=== PATIENT | male | born 1935 | race Caucasian/White ===

== ENCOUNTER 2017-06-11 10:40 | Inpatient (IN) | payer OTHER ==
[~2017-06-11] VITALS: Ht 167.6 cm; Wt 57.0 kg
[~2017-06-11 10:40] MED LIST: ALBUPOW26; GLYB1POW
[2017-06-11 11:29] LABS: Hematocrit 40.7 % (41.0-53.0)
[2017-06-11 11:31] LABS: Basophils # (auto) 0.1 uL; Basophils % (auto) 0.7 % (0.0-2.0); Eosinophils # (auto) 0.2 uL; Eosinophils % (auto) 1.6 % (0.0-7.0); Hemoglobin 13.4 g/dL (13.5-17.5); Lymphocytes # (auto) 1.6 uL; Lymphocytes % (auto) 12.9 % (10.0-50.0); Mean Corpuscular Hemoglobin 35.2 pg (28.0-32.0); Mean Corpuscular Volume 106.4 fL (80.0-100.0); Mean Platelet Volume 7.4 fL (6.9-10.8); Monocytes # (auto) 1.8 uL; Monocytes % (auto) 14.2 % (0.0-12.0); Neutrophils # (auto) 8.8 uL; Neutrophils % (auto) 70.6 % (37.0-80.0); Nucleated Red Blood Cells % 0.1 %; Platelet Count (auto) 384 10^3/uL (140-450); White Blood Cell 12.5 10^3/uL (4.4-10.8)
[2017-06-11] MEDS ORDERED: ASPirin 81 mg TAB PO ONE (11:45)
[2017-06-11 11:50] LABS: Albumin 3.3 g/dL (3.4-5.0); BUN/Creatinine Ratio 60.3; Bilirubin, Total 0.3 mg/dL (0.2-1.0); Magnesium 2.7 mg/dL (1.6-2.6); Total Protein 6.8 g/dL (6.4-8.2)
[2017-06-11 13:15] LABS: B-Type Natriuretic Peptide 337.71 pg/mL (0-100)
[2017-06-11 13:17] LABS: Temperature: 22.7 C (20.0-25.0)
[2017-06-11] MEDS ORDERED: LORazepam 0.5 MG TAB PEG PRN (14:30)
[2017-06-11] MEDS ORDERED: KETOROLAC TROMETH 30 MG/ML 1ML VIAL IV PRN (14:30)
[2017-06-11] MEDS ORDERED: ZOLPIDEM TARTRATE 5 MG TAB PEG PRN (14:30)
[2017-06-11] MEDS ORDERED: MORPHINE SULF INJ 2 MG/ML SYRINGE 1ML IV PRN ×2 (14:30)
[2017-06-11] MEDS ORDERED: ONDANSETRON HCL 4 MG/2 ML VIAL IV PRN (14:30)
[2017-06-11] MEDS ORDERED: NITROGLYCERIN 0.4 MG SL TAB SL PRN ×2 (14:30)
[2017-06-11] MEDS ORDERED: CLOPIDOGREL BISULFATE 75 MG TAB PEG ONE (14:45)
[2017-06-11] MEDS ORDERED: DEXTROSE (50%) 50ML SYRG IV PRN (14:45)
[2017-06-11] MEDS ORDERED: CARVEDILOL 3.125 MG TAB PEG ONE (14:45)
[2017-06-11] MEDS: PANTOPRAZOLE 40 MG/10 ML VIAL IV SCH (14:45)
[2017-06-11] MEDS ORDERED: ENALAPRIL MALEATE 2.5 MG TAB PEG ONE (14:45)
[2017-06-11] MEDS ORDERED: ISOSORBIDE MONONITRATE 60 MG TAB PO ONE (15:30)
[2017-06-11] MEDS: ACCU-CHEK COMFORT CURVE STRIP VI SCH ×2 (16:26→21:27)
[2017-06-11] MEDS: InsuLIN REG 1unit/0.01ml Soln (100units/ml) SC SCH ×2 (16:26→21:39)
[2017-06-11 17:47] VITALS: BP 101/57
[2017-06-11 19:02] LABS: Vitamin B12 496 pg/mL (211-911)
[2017-06-11 19:24] LABS: Temperature: 23.5 C (20.0-25.0)
[2017-06-11] MEDS: ENALAPRIL MALEATE 2.5 MG TAB PEG SCH (21:18)
[2017-06-11] MEDS: SODIUM CHLOR 0.9% PF (SALINE LOCK) 10ML VIAL IV SCH (21:18)
[2017-06-11] MEDS: CARVEDILOL 3.125 MG TAB PEG SCH (21:19)
[2017-06-11 21:36] LABS: Urine Bilirubin Negative (Negative); Urine Blood 2+ /uL (Negative); Urine Color PINK (Yellow); Urine Glucose Normal (Normal); Urine Ketone TRACE (Negative); Urine Mucus FEW (None Seen); Urine Nitrite Negative (Negative); Urine RBC 1362 /hpf (0 - 3); Urine WBC Clumps PRESENT /hpf (None Seen); Urine pH 6.5 (5.0-8.0)
[2017-06-11 22:00] VITALS: BP_SYST 100; BP_SYST 147; BP_DIAS 46; BP_DIAS 75
[2017-06-11] MEDS ORDERED: ATORVASTATIN 20 MG TAB PEG SCH (22:00)
[2017-06-12 05:08] VITALS: BP 99/48
[2017-06-12 05:47] LABS: Eosinophils # (auto) 0.3 uL; Lymphocytes # (auto) 1.5 uL; Mean Platelet Volume 7.4 fL (6.9-10.8); Neutrophils # (auto) 6.2 uL; Nucleated Red Blood Cells % 0.1 %
[2017-06-12 05:49] LABS: Basophils # (auto) 0 uL; Basophils % (auto) 0.5 % (0.0-2.0); Eosinophils % (auto) 2.9 % (0.0-7.0); Hematocrit 35.3 % (41.0-53.0); Hemoglobin 11.9 g/dL (13.5-17.5); Lymphocytes % (auto) 16.2 % (10.0-50.0); Mean Corpuscular Hemoglobin 35.4 pg (28.0-32.0); Mean Corpuscular Hgb Conc. 33.8 g/dL (32.0-36.0); Monocytes # (auto) 1.3 uL; Monocytes % (auto) 14.2 % (0.0-12.0); Neutrophils % (auto) 66.2 % (37.0-80.0); Platelet Count (auto) 325 10^3/uL (140-450); Red Cell Distribution Width 15.8 % (11.8-14.3); White Blood Cell 9.3 10^3/uL (4.4-10.8)
[2017-06-12 06:03] LABS: Albumin 2.9 g/dL (3.4-5.0); Bilirubin, Total 0.4 mg/dL (0.2-1.0); Calcium 8.5 mg/dL (8.5-10.1); Magnesium 2.6 mg/dL (1.6-2.6); Potassium 3.8 mmol/L (3.5-5.1); Total Protein 5.9 g/dL (6.4-8.2)
[2017-06-12] MEDS: ACCU-CHEK COMFORT CURVE STRIP VI SCH ×3 (06:09→17:00)
[2017-06-12] MEDS: SODIUM CHLOR 0.9% PF (SALINE LOCK) 10ML VIAL IV SCH ×2 (06:09→14:05)
[2017-06-12] MEDS: InsuLIN REG 1unit/0.01ml Soln (100units/ml) SC SCH ×3 (06:09→17:00)
[2017-06-12] MEDS ORDERED: glipiZIDE 5 MG TAB PEG SCH (07:00)
[2017-06-12 08:00] VITALS: BP 104/58
[2017-06-12 09:29] VITALS: BP 104/58
[2017-06-12] MEDS ORDERED: HYDROcodone-ACET 5/325MG TAB PO PRN (09:45)
[2017-06-12] MEDS ORDERED: ASPirin 81 mg TAB PEG SCH (10:00)
[2017-06-12] MEDS ORDERED: ISOSORBIDE MONONITRATE 60 MG TAB PO SCH (10:00)
[2017-06-12] MEDS: CARVEDILOL 3.125 MG TAB PEG SCH (10:00)
[2017-06-12] MEDS ORDERED: CLOPIDOGREL BISULFATE 75 MG TAB PEG SCH (10:00)
[2017-06-12] MEDS ORDERED: FINASTERIDE 5 MG TAB PEG SCH (10:00)
[2017-06-12] MEDS: ENALAPRIL MALEATE 2.5 MG TAB PEG SCH (10:00)
[2017-06-12] MEDS ORDERED: cefTRIAXone 1GM/50ML D5W 50 ML IV SCH (10:00)
[2017-06-12] MEDS: PANTOPRAZOLE 40 MG/10 ML VIAL IV SCH (10:07)
[2017-06-12 13:00] VITALS: BP 143/61
[2017-06-12 17:35] VITALS: BP 112/67
[2017-06-12] MEDS ORDERED: CLOP75TA41 PO (17:46)
[2017-06-12] MEDS ORDERED: METF-370 PO (17:46)
[2017-06-12] MEDS ORDERED: ASPI81TA27 PO (17:46)
[2017-06-12] MEDS ORDERED: BENA10TA9 PO (17:46)
[2017-06-12] MEDS ORDERED: ATO40T PO (17:46)
[2017-06-12] MEDS ORDERED: FINA5TAB4 PO (17:46)
[2017-06-12] MEDS ORDERED: GLIP-116 PO (17:46)
[2017-06-12] MEDS ORDERED: CARV3.1240 PO (17:46)
[2017-06-12] MEDS ORDERED: BUDE0.253 NEB (17:46)
[2017-06-12 17:48] VITALS: BP 112/67
== END 2017-06-12 18:40 | disposition home or self-care (01) | DRG 313 ==
LOC: ER 10:40 → TELE 10:41 → TELE-WESTW 18:37
PROVIDERS: ADMIT Internal Medicine; ATTEND Family Medicine
DX: R07.89 Other chest pain (principal); I25.2 Old myocardial infarction; E44.0 Moderate protein-calorie malnutrition; N39.0 Urinary tract infection, site not specified; Z93.1 Gastrostomy status; E83.41 Hypermagnesemia; E11.9 Type 2 diabetes mellitus without complications; D63.8 Anemia in other chronic diseases classified elsewhere; I10 Essential (primary) hypertension; E78.5 Hyperlipidemia, unspecified; I25.10 Atherosclerotic heart disease of native coronary artery without angina pectoris; Z68.20 Body mass index [BMI] 20.0-20.9, adult; Z83.3 Family history of diabetes mellitus; I69.391 Dysphagia following cerebral infarction; Z87.891 Personal history of nicotine dependence; Z95.5 Presence of coronary angioplasty implant and graft; Z90.49 Acquired absence of other specified parts of digestive tract; Z79.82 Long term (current) use of aspirin
CPT/HCPCS: 36415; 71010; 80053; 80061; 81001; 82607; 82746; 82962; 83036; 83735; 83880; 84443; 84484; 85025; 87086; 87088; 87186; 93005; 93306; 94761; C9113; J0696; J1815

== ENCOUNTER 2017-07-28 23:37 | Emergency (ER) | payer OTHER ==
[~2017-07-28] VITALS: Ht 162.6 cm; Wt 58.1 kg
[~2017-07-28 23:37] MED LIST changes: -ALBUPOW26; +ASPI81TA27 PO; +ATO40T PO; +BENA10TA9 PO; +BUDE0.253 NEB; +CARV3.1240 PO; +CLOP75TA41 PO; +FINA5TAB4 PO; +GLIP-116 PO; -GLYB1POW; +METF-370 PO
[2017-07-29 00:09] VITALS: BP 110/50
== END 2017-07-29 04:28 | disposition left against medical advice (07) ==
LOC: ER 23:37
DX: R07.89 Other chest pain (principal); R06.02 Shortness of breath; Z53.21 Procedure and treatment not carried out due to patient leaving prior to being seen by health care provider
CPT/HCPCS: 93005